=== PATIENT | male | born 1995 | race Caucasian/White ===

== ENCOUNTER 2017-11-18 22:03 | Emergency (ER) | payer SELFPAY ==
[~2017-11-18] VITALS: Ht 182.9 cm; Wt 131.0 kg
[2017-11-18] MEDS ORDERED: LORTAB 5/3255 MG PO (23:41)
[2017-11-18] MEDS ORDERED: VOLTAREN - GENE75 MG PO (23:41)
[2017-11-18 23:55] VITALS: BP 141/73
== END 2017-11-18 23:55 | disposition home or self-care (01) | DRG 563 ==
LOC: ED 22:03 → EDSEX 22:38 → ED 23:55
DX: S46.911A Strain of unspecified muscle, fascia and tendon at shoulder and upper arm level, right arm, initial encounter (principal); F17.210 Nicotine dependence, cigarettes, uncomplicated; W10.9XXA Fall (on) (from) unspecified stairs and steps, initial encounter; Y93.89 Activity, other specified; Y92.008 Other place in unspecified non-institutional (private) residence as the place of occurrence of the external cause